=== PATIENT | female | born 1985 | race Caucasian/White ===

== ENCOUNTER → 2016-06-05 | Outpatient (CLI) | payer OTHER ==
--- NOTE | 2016-06-05 10:16 | DI ---
THORACIC SPINE SERIES, 06/05/2016 9:59 AM: Clinical History: Thoracic back pain. Previous Exam: 12/11/2006. 2 upright views are submitted. The vertebral bodies are of normal height and size with normal disc sp aces. Pedicles and posterior elements are normal. There are no paravertebral masses. There has been n o interval change. Reading: Normal thoracic spine series.
--- NOTE | 2016-06-05 11:08 | DI ---
LUMBAR SPINE SERIES, 06/05/2016 9:59 AM: Clinical History: Low back pain. Previous Exam: 12/11/2006. Upright AP and lateral and upright lateral flexion and extension views are submitted. The vertebral b odies are of normal height and size. The disc spaces are normal. Posterior alignment is normal and th ere is no instability noted with flexion and extension maneuvers. The pedicles are normal. 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 Both SI joints are normal. The patient has gained substantial weight between the 2 examinations. Readin. There is no disc space narrowing but sclerotic degenerative changes have developed in the apophys eal joints bilaterally between L4-5 and L5-S1 since the previous exam. 2. There is no instability with flexion and extension maneuvers.
--- NOTE | 2016-06-05 11:13 | DI ---
AP PELVIS and RIGHT HIP, 06/05/2016 10:56 AM: Clinical History: Right hip pain. Previous Exam: None at this facility. There is no soft tissue abnormality. The bony structures of the pelvis are normal. 2 views of the rig ht hip show a normal joint space. The femoral head is spherical and there is no dysplastic "bump" or acetabular over coverage. Readin. Normal right hip exam. 2. The AP pelvis view is unremarkable.
== END ==
LOC: ORTHO 10:15
PROVIDERS: ATTEND Physician Assistant
DX: M47.27 Other spondylosis with radiculopathy, lumbosacral region (principal); M54.6 Pain in thoracic spine; M25.551 Pain in right hip; R20.2 Paresthesia of skin; F17.210 Nicotine dependence, cigarettes, uncomplicated
CPT/HCPCS: 72070; 72110; 73502

== ENCOUNTER → 2016-07-24 | Outpatient (CLI) | payer BC, OTHER ==
--- NOTE | 2016-07-24 10:25 | DI ---
MRI LUMBAR SPINE W/O CN,07/24/2016 8:55 AM: Clinical History: Lumbosacral spondylosis Previous Exam: None at this facility. Findings: Multiplanar MR images are obtained through the lumbar spine without contrast. Bony alignment is anatomic. No fractures are seen. Marrow signal is preserved. The spinal cord descen ds normally with normal course, caliber and a normal conus at the L2 level. The paravertebral soft tissues are unremarkable. The retroperitoneal structures are also unremarkable. Major vascular flow voids are unremarkable. There is epidural fat noted without significant stenosis. Individual intervertebral disc spaces: There is no significant disc bulging, disc desiccation or significant central canal nor neural forami nal narrowing throughout the entire lumbar spine. Impression: 1. No significant central canal nor neural foraminal narrowing.
== END ==
LOC: MRI 08:52
PROVIDERS: ATTEND Physician Assistant
DX: M47.27 Other spondylosis with radiculopathy, lumbosacral region (principal)
CPT/HCPCS: 72148

== ENCOUNTER → 2016-08-08 | Outpatient (CLI) | payer BC ==
--- NOTE | 2016-08-10 15:40 | DI ---
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 Previous Exam: None at this facility. Findings: Multiplanar MR images are obtained through the thoracic spine without contrast. There is a tiny focus of fluid density within the central portion of the spinal cord. The thoracic spine is unremarkable with mild loss of intervertebral disc height at multiple levels. T he paravertebral soft tissues are unremarkable. There is no significant central canal nor neuroforami nal narrowing. Visualized vascular flow voids are unremarkable as well. The cervical spine and base of the skull are unremarkable. There is no fracture nor subluxation. Impression: 1. No central canal nor neural foraminal narrowing. 2. Fluid signal within the central spinal cord. This could represent a syrinx or could represent lc enital persistence of the central canal. These cannot be distinguished on MRI. If there is concern fo r a syrinx, one of the causative factors could be neoplasia, and therefore contrast-enhanced images o f the spinal cord should also be obtained.
== END ==
LOC: MRI 12:58
PROVIDERS: ATTEND Neurological Surgery
DX: G95.0 Syringomyelia and syringobulbia (principal)
CPT/HCPCS: 72146

== ENCOUNTER → 2016-08-20 | Outpatient (CLI) | payer BC ==
--- NOTE | 2016-08-20 15:03 | DI ---
HISTORY: Visible central canal of spinal cord. TECHNIQUE: Multiplanar multisequence imaging with and without gadolinium. FINDINGS: The craniocervical junction is unremarkable. Vertebral bodies maintain height, disc space s are generally preserved. There is no significant degenerative disc disease. At C2-3, there is no significant foraminal or spinal stenosis. There is no significant degenerative disc disease. At C3-4, there is no significant foraminal, or spinal stenosis. There is no significant degenerative disc disease. At C4-5, there is no significant foraminal spinal stenosis. There is no significant degenerative dis c disease. At C5-6, there is no significant foraminal spinal stenosis. There is equivocal very mild narrowing o f the right neural foramen. There is no significant degenerative disc disease. At C6-7, there is no significant foraminal spinal stenosis. There is no significant degenerative dis c disease. There is no significant facet arthropathy. There is bilateral maxillary sinus mucosal thickening with a mucous retention cyst in the right maxil leila sinus. Following gadolinium administration, there is no enhancing mass. There is no evidence of syringomyelia. There is no abnormal enhancing lesion. The paravertebral muscles appear grossly unremarkable. IMPRESSION: 1. At C5/6, there is equivocal very mild narrowing of the right neural foramen.
== END ==
LOC: MRI 12:57
PROVIDERS: ATTEND Physician Assistant
DX: G95.89 Other specified diseases of spinal cord (principal); M54.12 Radiculopathy, cervical region
CPT/HCPCS: 72156

== ENCOUNTER → 2016-08-21 | Outpatient (CLI) | payer BC ==
--- NOTE | 2016-08-25 13:20 | DI ---
MRI THORACIC SPINE W/CN,08/21/2016 12:35 PM: Clinical History: Visible central canal. Previous Exam: Aug 08 2016 Findings: Multiplanar MR images are obtained through the thoracic spine and after the intravenous administratio n of 20 mL of gadolinium contrast, and demonstrates a normal-appearing spinal cord without any abnorm al enhancement. There is no evidence of spinal cord lesion. The neuroforamina are widely patent. There is no other abnormal Impression: No evidence of enhancing mass within the spinal cord. This most likely represents a normal variant wi th prominence of the central canal.
== END ==
LOC: MRI 12:29
PROVIDERS: ATTEND Physician Assistant
DX: G95.89 Other specified diseases of spinal cord (principal)
CPT/HCPCS: 72147

== ENCOUNTER → 2016-09-12 | Outpatient (CLI) | payer BC | LOC: LAB 11:34 | PROVIDERS: ATTEND Physician Assistant | DX: G62.9 Polyneuropathy, unspecified (principal); M54.5 Low back pain; K21.9 Gastro-esophageal reflux disease without esophagitis; F17.200 Nicotine dependence, unspecified, uncomplicated; Z83.49 Family history of other endocrine, nutritional and metabolic diseases | CPT/HCPCS: 36415; 82607; 82746; 84443; 85652 ==

== ENCOUNTER → 2016-10-22 | Outpatient (CLI) | payer BC | LOC: LAB 11:29 | PROVIDERS: ATTEND Physician Assistant Medical | DX: E53.8 Deficiency of other specified B group vitamins (principal) | CPT/HCPCS: 36415; 82607 ==